=== PATIENT | female | born 1955 | race Caucasian/White ===

== ENCOUNTER 2017-10-05 10:09 | Outpatient (CLI) | payer BC | END 2017-10-05 18:38 | disposition home or self-care (01) | LOC: SMA 10:09 | PROVIDERS: ATTEND Family Medicine | DX: Z12.31 Encounter for screening mammogram for malignant neoplasm of breast (principal) | CPT/HCPCS: G0202 ==

== ENCOUNTER 2018-11-05 13:51 | Outpatient (CLI) | payer BC, OTHER | END 2018-11-05 19:24 | disposition home or self-care (01) | LOC: SMA 13:51 | PROVIDERS: ATTEND Physician Assistant Medical | DX: Z12.31 Encounter for screening mammogram for malignant neoplasm of breast (principal) | CPT/HCPCS: 77067 ==

== ENCOUNTER 2020-06-09 12:10 | Outpatient (CLI) | payer BC | END 2020-06-09 20:53 | disposition home or self-care (01) | LOC: SMA 12:10 | PROVIDERS: ATTEND Family Medicine | DX: Z12.31 Encounter for screening mammogram for malignant neoplasm of breast (principal) | CPT/HCPCS: 77067 ==

== ENCOUNTER 2021-08-19 10:58 | Outpatient (CLI) | payer BC | END 2021-08-19 20:01 | disposition home or self-care (01) | LOC: SMA 10:58 | PROVIDERS: ATTEND Family Medicine | DX: Z12.31 Encounter for screening mammogram for malignant neoplasm of breast (principal) | CPT/HCPCS: 77067 ==